=== PATIENT | female | born 1975 | race Caucasian/White ===

== ENCOUNTER 2019-05-16 14:39 | Inpatient (IN) ==
[2019-05-16] MEDS ORDERED: ZOFRAN IV PRN (15:40)
[2019-05-16] MEDS ORDERED: PHENOBARBITAL IV PRN (15:40)
[2019-05-16] MEDS ORDERED: ZOFRAN ODT PO PRN (15:40)
[2019-05-16] MEDS ORDERED: MOTRIN PO PRN (15:40)
[2019-05-16] MEDS ORDERED: MAALOX PLUS LIQUID PO PRN (15:40)
[2019-05-16] MEDS ORDERED: SENOKOT PO PRN (15:40)
[2019-05-16] MEDS ORDERED: IMODIUM PO PRN ×2 (15:40)
[2019-05-16] MEDS ORDERED: D5W 1,000 ML IV PRN (15:40)
[2019-05-16] MEDS ORDERED: TYLENOL PO PRN (15:40)
[2019-05-16] MEDS ORDERED: ZOFRAN IM PRN (15:40)
[2019-05-16] MEDS ORDERED: DESYREL PO PRN (15:40)
[2019-05-16] MEDS ORDERED: DULCOLAX PR PRN (15:40)
[2019-05-16] MEDS ORDERED: TUBERSOL ID ONE (15:40)
[2019-05-16] MEDS ORDERED: NICOTINE GUM BUCCAL PRN (15:40)
[2019-05-16 16:13] LABS: HEMATOCRIT 38.1 % (37.0-47.0); HEMOGLOBIN 12.9 g/dL (12.0-16.0); MCH 34.6 PG (27-31); MCHC 33.9 g/dL (33-37); MCV 102.1 FL (81-99); MPV 10.6 FL (7.4-10.4); RBC 3.73 XMIL (4.2-5.4); RDW 12.6 % (11.5-14.5); WBC 7.99 X1000 (4.8-10.8)
[2019-05-16 16:22] LABS: INR 0.91; PROTIME 12.7 Seconds (11.0-16.0)
[2019-05-16] MEDS: NICODERM PATCH TD PRN (16:27)
[2019-05-16 16:35] LABS: AGAP 18; ALBUMIN 4.1 g/dL (3.5-5.0); ALKALINE PHOSPHATASE 117 U/L (32-104); AMYLASE 41 U/L (20-200); BUN 9 mg/dL (8-22); CALCIUM 9.8 mg/dL (8.8-10.2); CHLORIDE 94 mmol/L (98-107); COSMO 276; CREATININE 0.8 mg/dL (0.5-0.9); ESTIMATED GFR > 60; GLUCOSE 122 mg/dL (70-104); GOT 74 U/L (10-30); GPT 41 U/L (10-36); LIPASE 98 U/L (13-60); POTASSIUM 3.1 mmol/L (3.5-5.1); SODIUM 138 mmol/L (136-145); TCO2 26 mmol/L (25-35); TOTAL PROTEIN 6.7 g/dL (6.3-8.3)
[2019-05-16 16:52] LABS: URINE SOURCE CLEAN CATCH
[2019-05-16 17:02] LABS: BILIRUBIN URINE NEGATIVE (NEGATIVE); BLOOD URINE TRACE (NEGATIVE); CLARITY SL. CLOUDY (CLEAR); COLOR YELLOW; GLUCOSE URINE NEGATIVE (NEGATIVE); KETONE URINE TRACE mg/dL (NEGATIVE); LEUKOCYTES URINE 1+ (NEGATIVE); NITRITE URINE NEGATIVE (NEGATIVE); PH URINE 6.5; PROTEIN URINE TRACE mg/dL (NEGATIVE); SP GRAVITY URINE 1.015; UROBILINOGEN URINE 4 mg/dL
[2019-05-16 17:06] LABS: UR AMPHETAMINES QUAL NONE DETECTED (NONE DETECT); UR BARBITUATES QUAL NONE DETECTED (NONE DETECT); UR BENZODIAZEPIN QUAL NONE DETECTED (NONE DETECT); UR CANNABINOIDS QUAL NONE DETECTED (NONE DETECT); UR COCAINE QUAL NONE DETECTED (NONE DETECT); UR METHADONE QUAL NONE DETECTED (NONE DETECT); UR METHAMPHETAMINE QUAL NONE DETECTED (NONE DETECT); UR OPIATES QUAL NONE DETECTED (NONE DETECT); UR OXYCODONE QUAL NONE DETECTED (NONE DETECT); UR PCP QUAL NONE DETECTED (NONE DETECT); UR PROPOXYPHENE QUAL NONE DETECTED (NONE DETECT); UR TCA QUAL NONE DETECTED (NONE DETECT)
[2019-05-16 17:09] LABS: URINE BACTERIA 1+ /HFP; URINE CAST NONE SEEN /LPF; URINE CRYSTAL CA OXALATE PRESENT /HPF; URINE EPITHELIAL CELLS >10 /HPF (<10); URINE RBC <10 /HPF (<10); URINE YEAST NONE SEEN /HPF
[2019-05-16] MEDS ORDERED: ATARAX PO PRN (17:14)
[2019-05-16] MEDS ORDERED: BENTYL PO PRN (17:14)
[2019-05-16] MEDS ORDERED: SALINE LOCK IV FLUID XX ONE (17:14)
[2019-05-16] MEDS ORDERED: M.V.I.-12 10 ML, FOLIC ACID 1 MG, MAGNESIUM SULFATE 1 GM, THIAMINE 100 MG in NS 1,000 ML IV ONE (18:00)
[2019-05-16] MEDS: LIBRIUM PO SCH ×2 (18:29→22:21)
--- NOTE | 2019-05-16 19:21 | HISTORY AND PHYSICAL ---
CHIEF COMPLAINT: Nausea and vomiting. HISTORY OF PRESENT ILLNESS: The patient is a 44-year-old female who presented to [facility] secondary to nausea, vomiting, abdominal pain, myalgias, paresthesias. Notes that she is drinking heavily. She has been trying to stop, has not been able to. She notes that she has already set up outpatient counseling. She has a life counselor. She is interested in medication assist therapy once sober. SOCIAL HISTORY: Patient is single. She is employed at [employer]. Lives in [place]. PAST MEDICAL HISTORY: Borderline personality disorder, chronic anxiety, depression, history of paranoid reaction, history of blackouts due to alcohol. She has had bloody emesis that was felt to be due to alcohol as well. MEDICATIONS: None. ALLERGIES: None. REVIEW OF SYSTEMS: CINA score is elevated at 42, secondary to moderate tremors at rest. She is easily agitated, fidgety. She is having visual hallucinations, sweating. Having nausea, vomiting, diarrhea, sensitivity to light, moderate headache, jittery, anxious, nervous, unable to sit still, unable to concentrate. Denies chest pains or palpitations. Feels as though her skin constantly crawling. She has had a decreased oral intake, decreased urinary output. Denies any blood in her emesis, or blood in her stool. FAMILY HISTORY: Noncontributory. SUBSTANCE ABUSE HISTORY: The patient was in treatment in [place] in 1997 for cocaine and has remained sober for 19 years. She was in treatment in 1999 at [facility] and again 09/2018 at [facility] for depression and anxiety. States that alcohol has caused legal problems as well as work problems. She is currently on leave from work. Started drinking at 12, currently drinks at least 2 pints a day for the last few weeks. Prior to that, was drinking a pint a day. Started marijuana at 14, currently rarely uses. Started depressants in her 20s, only uses Xanax as prescribed. Started crack cocaine at 19, has not used since her 20s. Started smoking at 15, currently smokes less than a pack a day. FAMILY HISTORY: Noncontributory. PHYSICAL EXAMINATION: VITAL SIGNS: Reviewed and stable. GENERAL: Patient is awake, alert. She is in no respiratory distress but she is obvious withdrawal. She is jittery, anxious, unable to sit still, moderate tremors at rest, visible sweating, frequently moving about. Has to be redirected to answer questions. She is very pleasant. HEENT: Normocephalic. NECK: Supple. CARDIOVASCULAR: Regular rate. No murmurs. CHEST: Clear. ABDOMEN: Soft. EXTREMITIES: Moves all extremities. NEUROLOGIC: No focal changes. SKIN: Warm and dry. No rashes. Patient is awake, alert. She is fidgety, anxious, unable to sit still. ASSESSMENT: 1. Nausea and vomiting. 2. Abdominal pain. 3. Myalgias. 4. Paresthesias. 5. Paroxysmal sweating. 6. Tremors. 7. Dry heaves. 8. Abdominal pain. 9. Anxiety and depression. 10. Alcohol abuse withdrawal and stabilization. 11. Chronic tobacco abuse. PLAN: We will admit patient to hospital. IV banana bag, IV fluids as needed. We will place her on high-dose Librium taper, begin counseling, symptomatic medications as needed. Further orders as needed. cc: Rafael Leyva MD
[2019-05-16] MEDS: SEROQUEL PO PRN (22:21)
[2019-05-17] MEDS: PROTONIX PO SCH ×2 (05:02→06:03)
[2019-05-17] MEDS: LIBRIUM PO SCH ×4 (05:02→23:27)
[2019-05-17] MEDS: VITAMIN B-1 PO SCH (09:12)
[2019-05-17] MEDS: FOLIC ACID PO SCH (09:12)
[2019-05-17] MEDS: THERA M PLUS PO SCH (09:12)
--- NOTE | 2019-05-17 13:30 | PROGRESS NOTE ---
DATE: 05/17/2019 SUBJECTIVE: Patient has no new complaints. States that she is feeling okay. Denies any fevers or chills. PHYSICAL EXAMINATION: Vital Signs: Reviewed. Temperature 97 degrees, pulse 96, respiratory 22, and BP 141/92. General: Patient is awake and alert. Currently, in no respiratory distress. Pleasant to talk with. HEENT: Normocephalic. Neck: Supple. Cardiovascular: Regular rate. No murmurs. Chest: Clear. Abdomen: Soft. Extremities: Moves all extremities. ASSESSMENT: 1. Nausea and vomiting. 2. Abdominal pain. 3. Myalgias. 4. Paresthesias. 5. Paroxysmal sweating. 6. Opiate abuse withdrawal and stabilization. 7. Alcohol abuse withdrawal and stabilization. PLAN: We will continue patient in hospital. Continue to follow. Further orders as needed. Continue to wean Librium as tolerated. cc: Rafael Leyva MD
[2019-05-17] MEDS: SEROQUEL PO PRN (23:54)
[2019-05-18] MEDS: ROBAXIN PO PRN ×2 (02:48→21:55)
--- NOTE | 2019-05-18 05:48 | PROGRESS NOTE ---
DATE: 05/18/2019 SUBJECTIVE: The patient notes that she is doing okay. She has no new complaints. PHYSICAL EXAMINATION: Vital Signs: Reviewed, temperature 97 degrees, pulse 90, respiratory 20, BP 108/61. General: The patient is awake. She is in no respiratory distress. HEENT: Normocephalic. Neck: Supple. Cardiovascular: Regular rate. No murmurs. Chest: Clear. Abdomen: Soft. Extremities: Moves all extremities. ASSESSMENT: 1. Nausea and vomiting. 2. Abdominal pain. 3. Myalgias. 4. Paresthesias. 5. Tremors. 6. Paroxysmal sweating. 7. Alcohol abuse withdrawal and stabilization. PLAN: We will continue the patient in the hospital, continue high-dose Librium taper as planned. Continue symptomatic medications. Further orders as needed. cc: Rafael Leyva MD
[2019-05-18] MEDS: LIBRIUM PO SCH ×3 (06:15→17:18)
[2019-05-18] MEDS: PROTONIX PO SCH (06:15)
[2019-05-18] MEDS: FOLIC ACID PO SCH (11:13)
[2019-05-18] MEDS: THERA M PLUS PO SCH (11:13)
[2019-05-18] MEDS: VITAMIN B-1 PO SCH (11:13)
[2019-05-18] MEDS: NICODERM PATCH TD PRN (17:18)
[2019-05-18] MEDS: SEROQUEL PO PRN (21:55)
[2019-05-19] MEDS: LIBRIUM PO SCH ×3 (00:23→12:18)
[2019-05-19] MEDS: PROTONIX PO SCH (06:03)
[2019-05-19] MEDS: VITAMIN B-1 PO SCH (09:34)
[2019-05-19] MEDS: THERA M PLUS PO SCH (09:34)
[2019-05-19] MEDS: FOLIC ACID PO SCH (09:34)
[2019-05-19 12:27] VITALS: BP 135/87
--- NOTE | 2019-05-20 10:12 | DISCHARGE SUMMARY ---
ADMISSION DATE: 05/16/2019 DISCHARGE DATE: 05/19/2019 DISCHARGE DIAGNOSES: 1. Nausea, vomiting. 2. Abdominal pain. 3. Myalgias. 4. Paresthesias. 5. Paroxysmal sweating. 6. Tremors 7. Alcohol abuse withdrawal and agitation. 8. Chronic anxiety, depression. CONSULTATIONS: None. PROCEDURES: None BRIEF COURSE: Patient is admitted to the hospital with nausea, vomiting, visible tremors, with sweating. She was agitated, unable to sit still. She is on Librium taper. Thankfully on discharge she is awake, alert. She is eating much better. Thankfully, overall [*] DISPOSITION: Patient will be discharged home. TIME SPENT: Greater than 30 minutes spent in care. Discussed she needs to avoid all her using and abusing of the past. She needs outpatient [*]alcohol counseling. Discharging home medications therapy i.e. naltrexone. cc: Rafael Leyva MD
== END 2019-05-19 15:36 | disposition home or self-care (01) | DRG 392 ==
LOC: P.DIRADM 14:39 → P.MEDSURG 15:13
PROVIDERS: ADMIT Family Medicine; ATTEND Family Medicine

== ENCOUNTER 2019-06-24 08:59 | Inpatient (IN) ==
[2019-06-24] MEDS: NICODERM PATCH TD SCH (11:38)
[2019-06-24] MEDS ORDERED: MAALOX PLUS LIQUID PO PRN (12:23)
[2019-06-24] MEDS ORDERED: ZOFRAN ODT PO PRN (12:23)
[2019-06-24] MEDS ORDERED: IMODIUM PO PRN ×2 (12:23)
[2019-06-24] MEDS ORDERED: TUBERSOL ID ONE (12:23)
[2019-06-24] MEDS ORDERED: TYLENOL PO PRN (12:23)
[2019-06-24] MEDS ORDERED: ZOFRAN IV PRN (12:23)
[2019-06-24] MEDS ORDERED: NICOTINE GUM BUCCAL PRN (12:23)
[2019-06-24] MEDS ORDERED: SENOKOT PO PRN (12:23)
[2019-06-24] MEDS ORDERED: NICODERM PATCH TD PRN (12:23)
[2019-06-24] MEDS ORDERED: DULCOLAX PR PRN (12:23)
[2019-06-24] MEDS ORDERED: PHENOBARBITAL IV PRN (12:23)
[2019-06-24] MEDS ORDERED: MOTRIN PO PRN (12:23)
[2019-06-24] MEDS ORDERED: DESYREL PO PRN (12:23)
[2019-06-24] MEDS ORDERED: ZOFRAN IM PRN (12:23)
[2019-06-24] MEDS ORDERED: D5W 1,000 ML IV PRN (12:23)
[2019-06-24] MEDS ORDERED: ROBAXIN PO PRN (12:42)
[2019-06-24] MEDS ORDERED: BENTYL PO PRN (12:42)
[2019-06-24] MEDS ORDERED: SALINE LOCK IV FLUID XX ONE (12:42)
[2019-06-24] MEDS ORDERED: ATIVAN IV ONE (12:44)
[2019-06-24] MEDS ORDERED: LIBRIUM PO SCH (12:45)
[2019-06-24 13:14] LABS: URINE SOURCE CLEAN CATCH
[2019-06-24 13:23] LABS: BILIRUBIN URINE NEGATIVE (NEGATIVE); BLOOD URINE 2+ (NEGATIVE); CLARITY SL. CLOUDY (CLEAR); COLOR YELLOW; GLUCOSE URINE NEGATIVE (NEGATIVE); KETONE URINE 3+(Large) mg/dL (NEGATIVE); LEUKOCYTES URINE 1+ (NEGATIVE); NITRITE URINE NEGATIVE (NEGATIVE); PROTEIN URINE 1+(30 mg/dL) mg/dL (NEGATIVE); SP GRAVITY URINE 1.015; UROBILINOGEN URINE NORMAL
[2019-06-24 13:27] LABS: URINE BACTERIA 1+ /HFP; URINE EPITHELIAL CELLS >10 /HPF (<10)
[2019-06-24 13:29] LABS: UR AMPHETAMINES QUAL NONE DETECTED (NONE DETECT); UR BARBITUATES QUAL NONE DETECTED (NONE DETECT); UR BENZODIAZEPIN QUAL PRESUMPTIVE POSITIVE (NONE DETECT); UR CANNABINOIDS QUAL NONE DETECTED (NONE DETECT); UR COCAINE QUAL NONE DETECTED (NONE DETECT); UR METHADONE QUAL NONE DETECTED (NONE DETECT); UR METHAMPHETAMINE QUAL NONE DETECTED (NONE DETECT); UR OPIATES QUAL NONE DETECTED (NONE DETECT); UR OXYCODONE QUAL NONE DETECTED (NONE DETECT); UR PCP QUAL NONE DETECTED (NONE DETECT); UR PROPOXYPHENE QUAL NONE DETECTED (NONE DETECT); UR TCA QUAL NONE DETECTED (NONE DETECT)
[2019-06-24] MEDS ORDERED: M.V.I.-12 10 ML, FOLIC ACID 1 MG, MAGNESIUM SULFATE 1 GM, THIAMINE 100 MG in NS 1,000 ML IV ONE (13:30)
[2019-06-24 14:00] LABS: AMYLASE 26 U/L (20-200); LIPASE 45 U/L (13-60)
[2019-06-24] MEDS: LIBRIUM PO SCH (18:44)
[2019-06-25] MEDS: LIBRIUM PO SCH ×4 (00:07→19:54)
[2019-06-25] MEDS: SEROQUEL PO PRN ×2 (00:13→20:05)
[2019-06-25] MEDS: PROTONIX PO SCH (06:16)
[2019-06-25] MEDS: THERA M PLUS PO SCH (09:41)
[2019-06-25] MEDS: FOLIC ACID PO SCH (09:41)
[2019-06-25] MEDS: NICODERM PATCH TD SCH ×2 (09:41→17:26)
[2019-06-25] MEDS: VITAMIN B-1 PO SCH (09:41)
[2019-06-25] MEDS: ATARAX PO PRN ×2 (12:06→22:17)
[2019-06-26] MEDS: LIBRIUM PO SCH ×3 (00:10→17:44)
[2019-06-26] MEDS: PROTONIX PO SCH (06:32)
[2019-06-26] MEDS: VITAMIN B-1 PO SCH (09:58)
[2019-06-26] MEDS: THERA M PLUS PO SCH (09:58)
[2019-06-26] MEDS: FOLIC ACID PO SCH (09:58)
[2019-06-26] MEDS: NICODERM PATCH TD SCH (09:58)
[2019-06-26] MEDS: ATARAX PO PRN ×2 (16:18→21:59)
[2019-06-26] MEDS: SEROQUEL PO PRN (21:59)
--- NOTE | 2019-06-26 23:12 | PROGRESS NOTE ---
DATE: 06/25/2019 SUBJECTIVE: Patient notes that she is feeling okay. Still having some tremors and muscle aches as well as some myalgias. Denies any fevers or chills. Denies cough or congestion. PHYSICAL EXAMINATION: Vital Signs: Reviewed. She is afebrile. HEENT: Normocephalic. Neck: Supple. Cardiovascular: Regular rate. Chest: Clear. Abdomen: Soft. Extremities: Moves all extremities. Neurologic: No changes. ASSESSMENT: 1. Nausea and vomiting. 2. Abdominal pain. 3. Myalgias. 4. Tremors. 5. Paresthesias. 6. Paroxysmal sweating. 7. Alcohol abuse, withdrawal and stabilization. PLAN: We will continue patient in the hospital. Continue high-dose Librium taper. Continue counseling. Further orders as needed. cc: Rafael Leyva MD
--- NOTE | 2019-06-26 23:14 | PROGRESS NOTE ---
DATE: 06/26/2019 SUBJECTIVE: Patient states that she is feeling a lot better this morning. She is ready to eat breakfast. She is hoping to walk around some today. PHYSICAL EXAMINATION: HEENT: Normocephalic. Neck: Supple. Cardiovascular: Regular rate. Chest: Clear. Abdomen: Soft. Extremities: Moves all extremities. Neurologic: No changes. ASSESSMENT: 1. Nausea, vomiting. 2. Abdominal pain. 3. Myalgias. 4. Tremors, improved. 5. Myalgias, improved. 6. Paresthesias, improved. 7. Alcohol abuse, withdrawal and stabilization. CONSULTATION: None. PROCEDURE: None. PLAN: The patient will be continued in the hospital today. We will decrease her Librium again today. Continue counseling. Further orders as needed. Hopefully she can discharge home with Vivitrol tomorrow. cc: Rafael Leyva MD
[2019-06-27] MEDS: LIBRIUM PO SCH ×2 (00:31→10:17)
[2019-06-27 08:40] VITALS: BP 132/89
[2019-06-27] MEDS ORDERED: REVIA PO SCH (09:00)
[2019-06-27] MEDS: THERA M PLUS PO SCH (10:17)
[2019-06-27] MEDS: PROTONIX PO SCH (10:18)
[2019-06-27] MEDS: FOLIC ACID PO SCH (10:18)
[2019-06-27] MEDS: VITAMIN B-1 PO SCH (10:18)
[2019-06-27] MEDS: NICODERM PATCH TD SCH (10:18)
[2019-06-27] MEDS ORDERED: VIVITROL IM ONE (13:00)
--- NOTE | 2019-06-28 23:34 | HISTORY AND PHYSICAL ---
CHIEF COMPLAINT: Nausea, vomiting. HISTORY OF PRESENT ILLNESS: The patient is a very pleasant 44-year-old female who re-presented to [facility] [place] [facility] secondary to nausea, vomiting, abdominal pain, myalgias, tremors and paresthesias. Notes that after going home the last time she quickly started drinking again. Currently, she is having withdrawal symptoms, tremors, myalgias. SOCIAL HISTORY: She is single. She is employed at [employer]. She lives at home in [place]. PAST MEDICAL HISTORY: Significant for borderline personality disorder, chronic anxiety, depression, history of blackouts that are alcohol related. She has a history of hematemesis related to alcohol. MEDICATIONS: Lamictal 150, Prozac 25. ALLERGIES: No known drug allergies. REVIEW OF SYSTEMS: CIWA score is elevated at 41 secondary to tremors at rest, easily agitated, restless. She is easily startled, unable sit still, decreased oral intake. Positive nausea, vomiting, frequent dry heaves, increased sensitivity to light. She is having sweating, chills, moderate headache. Notes that she has had suicidal ideations a few weeks ago, has been evaluated by [facility]. She has no current plans. Denies any blurred vision, change in vision. Denies any focalized numbness, tingling, or weakness in her extremities. Denies any dysuria, urinary frequency, urgency, hesitancy, polyuria or polydipsia. Denies skin rashes, weight loss or weight gain. SUBSTANCE ABUSE HISTORY: The patient was in substance abuse in 1997 for crack cocaine. She has not used since. She has been sober 19 years with her last use in 1999. She has had issues with [facility] in 2019. She has been to [facility] for mental health issues in 2019. She was in [facility] earlier in May, stayed for a few days and only stayed sober a few days as she refused medication-assisted therapy. Notes that substance abuse has caused relationship problems, financial problems, work problems. [facility] has also been involved with her family secondary to alcohol. Notes that she started drinking as early as age 12. Currently, she is drinking up to a pint a day, sometimes a fifth of vodka as well. Started marijuana at age 14, currently is not using although she was using daily for quite some time. Started depressants in early 20s and only takes as prescribed for the past few months. Tried crack cocaine in her early 20s. She was smoking daily for about 3 years and has not used in 19 years. Started nicotine at 15, currently smokes half pack a day. FAMILY HISTORY: Noncontributory. PHYSICAL EXAMINATION: VITAL SIGNS: Reviewed and stable. GENERAL: Patient is awake, alert. She is in no current respiratory distress. HEENT: Normocephalic. NECK: Supple. CARDIOVASCULAR: Regular rate. CHEST: Clear. ABDOMEN: Soft. EXTREMITIES: Moves all extremities. NEUROLOGIC: No focal changes. SKIN: Warm, dry. No rashes. NEUROLOGIC: She is awake, alert, oriented. She is fidgety, anxious, frequently moving about. ASSESSMENT: 1. Nausea, vomiting. 2. Abdominal pain. 3. Myalgias. 4. Paresthesias. 5. Paroxysmal sweating. 6. Tremors. 7. Chronic anxiety, depression. 8. Polysubstance use and abuse. 9. Alcohol use and abuse. 10. Others. PLAN: We will admit patient to the hospital. IV banana bag. Start her on Librium. Began counseling. Again, we will discuss with patient the use of medication-assisted therapy on discharge. cc: Rafael Leyva MD
--- NOTE | 2019-06-29 16:10 | DISCHARGE SUMMARY ---
ADMISSION DATE: 06/24/2019 DISCHARGE DATE: 06/27/2019 DISCHARGE DIAGNOSES: 1. Nausea, vomiting, abdominal pain. 2. Myalgias. 3. Paresthesias. 4. Paroxysmal sweating. 5. Alcohol abuse withdrawal and stabilization. 6. Chronic anxiety, depression. 7. Others. CONSULTATIONS: None. PROCEDURES: None. BRIEF HOSPITAL COURSE: The patient is a very pleasant 44-year-old female who presented to the hospital, treated in the usual fashion, placed on high-dose Librium taper. Counseling was performed each day by myself. The patient had an uneventful hospital course. She was placed on Librium. We continued to wean down as tolerated. On discharge, the patient is in no distress. DISPOSITION: Patient will be discharged home. Greater than 30 minutes was spent in total care. Discussed with patient the use of naltrexone versus Vivitrol. She did receive a Vivitrol injection while in the hospital. She has weaned down on Librium. She currently is safe and sober. Discussed with her that she needs to avoid all persons, places, situations which she has been using and abusing in the past. She needs outpatient life counseling as well as drug counseling. cc: Rafael Leyva MD
== END 2019-06-27 11:17 | disposition home or self-care (01) | DRG 392 ==
LOC: P.DIRADM 09:55 → SUATTDRO 09:55 → P.MEDSURG 10:15
PROVIDERS: ADMIT Family Medicine; ATTEND Family Medicine